=== PATIENT | male | born 2005 | race Caucasian/White ===

== ENCOUNTER 2025-06-18 12:58 | Emergency (ER) | payer BC, SELFPAY ==
[2025-06-18 13:07] VITALS: BP 137/69; PULSE 95; RESP 18; TEMP 36.8; O2SAT 99; BMI 22.4
--- NOTE | 2025-06-18 13:13 | XR_ITS ---
WS: [email or web address] Right foot, 3 views, 06/18/2025 Clinical Data: trauma Comparison: None. Findings: No fractures or dislocations are seen. No bone destruction or erosion is noted. The joint spaces and soft tissues are normal. XR/XR foot RT min 3V* [id number] Impression: Negative right foot.
--- NOTE | 2025-06-18 13:13 | XR_ITS ---
WS: [email or web address] Right leg including the tibia and fibula, AP and lateral views, 06/18/2025 Clinical Data: trauma Comparison: None. Findings: No fractures or dislocations are seen. The tibia and fibula are intact. The soft tissues are normal. XR/XR tibia fibula RT 2V 10341 Impression: Negative for right leg fracture.
--- NOTE | 2025-06-18 13:13 | XR_ITS ---
WS: [email or web address] Right ankle, 3 views, 06/18/2025 Clinical Data: trauma Comparison: None. Findings: No fractures or dislocations are seen. The ankle mortise is normal. The talus and calcaneus are unremarkable. No soft tissue swelling over the medial or lateral malleolus is seen. XR/XR ankle RT min 3V* [id number] Impression: Negative right ankle.
--- NOTE | 2025-06-18 13:13 | XR_ITS ---
WS: [email or web address] Right knee, 3 views, 06/18/2025 Clinical Data: trauma Comparison: None. Findings: No fractures or dislocations are seen. The joint spaces are normal. The patella is intact. The soft tissues are unremarkable. XR/XR knee RT 3V* [id number] Impression: Negative right knee.
--- NOTE | 2025-06-18 13:15 | ED_ITS ---
HPI - Extremity Injury (Lower) General: Chief Complaint: Extremity Injury, Lower Stated Complaint: log rollover right knee and ankle Time Seen by Provider: 06/18/25 12:59 Source: patient Mode of arrival: ambulatory Limitations: no limitations History of Present Illness: Patient is a 19-year-old male who presents to ED today for evaluation of right lower leg injury that he sustained just prior to arrival while he was at work. He states he was cutting down a tree and a tree branch/a log rolled up onto his right leg. There was no crush injury or prolonged entrapment. Patient states during the incident he heard a pop to his right knee. He is also having pain to his foot and ankle. He states he cannot bear weight secondary to discomfort. He has not noted any obvious swelling or deformity. He states he does not want this to be Worker's Comp. complaint: leg injury, ankle injury and foot injury Onset (ago): hour(s) Injury: Right: knee, ankle and foot Type of Injury: blunt Place: work Severity: moderate Relieving factors: immobilization Exacerbating factors: weight bearing, movement and palpation Context: direct blow Associated symptoms: Reports inability to bear weight Other symptoms: none Related Data Home Medications ?Medication ?Instructions ?Recorded ?Confirmed doxylamine succinate 25 mg tablet 25 mg PO Q6H PRN Sle ep 06/18/25 06/18/25 (Unisom (doxylamine)) Allergies Allergy/AdvReac Type Severity Reaction Status Date / Time No Known Allergies Allergy Verified 06/18/25 13:12 Review of Systems Card: Denies: chest pain Resp: Denies: dyspnea GI: Denies: abdominal pain Musc: Reports: extremity pain and joint pain (R knee/ankle); Denies: neck pain, back pain, extremity swelling, joint swelling or joint redness Neuro: Reports: difficulty walking; Denies: numbness in extremities, weakness in extremities or sensory changes Physical Exam Const: COMMON NORMALS: no acute distress, average body habitus, patient oriented x3, no limitations, healthy appearing, alert and well nourished GENERAL APPEARANCE: cooperative ORIENTATION/CONSCIOUSNESS: Yes awake, Yes oriented to person, Yes oriented to place and Yes oriented to time HENMT: COMMON NORMALS: normocephalic and atraumatic HEAD & SCALP: normal to inspection, normocephalic and atraumatic Back/Pelvis: COMMON NORMALS: thoracic and lumbar spine normal to inspection and no thoracic nor lumbar tenderness Extremity: COMMON NORMALS: capillary refill normal, no clubbing, cyanosis or edema, no calf tenderness and no pedal edema GENERAL: Yes normal exam except as noted RIGHT LOWER EXTREMITY: Yes knee joint, Yes lower leg, Yes foot & digits and Yes foot & digits OTHER: patient maintains full passive ROM of knee/ankle although is slightly uncomfortable; no obvious bony deformities noted; extremity is NV intact with normal pulses, cap refill, sensation; mild abrasion lower anterior lower leg; there is no edema; nothing to suggest a compartment syndrome Neuro: COMMON NORMALS: patient oriented x3, moves all extremities, no focal motor deficits and no sensory deficits noted SENSORIUM/ORIENTATION: Yes alert, Yes oriented to person, Yes oriented to place and Yes oriented to time Course Vital Signs: Vital signs: Vital Signs Temperature 98.2 F 06/18/25 13:07 Pulse Rate 95 06/18/25 13:07 Respiratory Rate 18 06/18/25 13:07 Blood Pressure 137/69 06/18/25 13:07 Pulse Oximetry 99 06/18/25 13:07 Oxygen Delivery Me thod Room Air 06/18/25 13:07 MDM - Extremity Injury (Lower) Medical Decision Making XRs of R knee, tib/fib, ankle/foot obtained and unremarkable. Patient will be given CHRISTINA wrap/crutches with instructions for RICE therapy. Will have CM set him up with PCP for further evaluation in case symptoms to not improve with conservative therapy. Differential Diagnosis Likely ankle sprain and strain, acute internal derangement of knee and ankle fracture Medical Records I reviewed the patient's medical records. Lab Data Radiology Impressions Ankle X-Ray 06/18/25 13:13 Impression: Negative right ankle. Foot X-Ray 06/18/25 13:13 Impression: Negative right foot. Knee X-Ray 06/18/25 13:13 Impression: Negative right knee. Tibia/Fibula X-Ray 06/18/25 13:13 Impression: Negative for right leg fracture. All radiology interpretation(s) finalized by discharge Discharge Plan Discharge Patient Disposition: Home Clinical Impression: Contusion of leg, right Qualifiers: Encounter type: initial encounter Qualified Code(s): S80.11XA - Contusion of right lower leg, initial encounter Condition: Stable Prescriptions: No Action Unisom (doxylamine) 25 mg Tablet 25 mg PO Q6H PRN (Reason: Sleep) Discharge Orders: Discharge ED (Routine); Ordered 06/18/25 Ordered By: Mile Elliott Patient Instructions: Contusion, Patient Portal & Rosalina Instructions Activity Restrictions/Additional Instructions: As we discussed, you may ice and elevate your extremity as well as take [id number] medications such as Tylenol and Motrin to help with discomfort. Case management should reach out to you to help set you up with your follow-up appointment with primary care for further evaluation in case symptoms do not improve. Print Language: Urdu Coding Level of Care Code ED Radio Television Announcer for Vin Moreno
[2025-06-18 14:17] VITALS: BP 113/45; PULSE 73; O2SAT 99
--- NOTE | 2025-06-19 08:05 | DCPLANNER ---
messaged [facility]pfm to est pcp
== END 2025-06-18 14:19 | disposition home or self-care (01) ==
PROVIDERS: Emergency Provider Physician Assistant
DX: S80.11XA Contusion of right lower leg, initial encounter (principal); W22.8XXA Striking against or struck by other objects, initial encounter
CPT/HCPCS: 73562; 73590; 73610; 73630; 99284